=== PATIENT | female | born 1975 | race Caucasian/White ===

== ENCOUNTER 2019-10-03 15:11 | Emergency (ER) | payer OTHER ==
[2019-10-03 16:09] VITALS: BP 119/78
[2019-10-03 17:01] LABS: Hepatitis B Surface Ab Immune (Immune)
[2019-10-03 17:02] LABS: Hepatitis C Antibody Negative (Negative)
--- NOTE | 2019-10-04 05:42 | ED ---
- HPI Summary HPI Summary: This patient is a 44-year-old female presenting to the ED with fingerstick to the left ring finger. Pt was accidentally stuck with a needle that she had used to inject a pt with heparin. Source patient will be tested. Denies any pain. Was able to wash the wound out well. No evidence of fingerstick per patient. No blood loss. 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 - Source Information HIV: Unknown Hepatitis: Unknown - Risk Factors Needlestick Risk Factor: Low Risk: Short Duration - Other Discussed Post-Exposure prophylaxis (PEP) for HIV: Declined Discussed PEP for Hepatitis-B: Declined Serologic Testing (HIV/HBV) Declined by Patient: No (Must be retained for 90 days, if drawn) PMH/Surg Hx/FS Hx/Imm Hx Previously Healthy: Yes Endocrine/Hematology History: Denies: Hx Anticoagulant Therapy, Hx Diabetes, Hx Thyroid Disease Cardiovascular History: Denies: Hx Congestive Heart Failure, Hx Deep Vein Thrombosis, Hx Hypertension , Hx Myocardial Infarction, Hx Pacemaker/ICD Respiratory History: 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 Denies: Hx Chronic Obstructive Pulmonary Disease (COPD), Hx Lung Cancer GI History: Denies: Hx Gall Bladder Disease, Hx Gastrointestinal Bleed, Hx Ulcer, Hx Urosepsis History: Denies: Hx Kidney Stones, Hx Renal Disease Neurological History: Denies: Hx Dementia, Hx Migraine, Hx Seizures, Hx Transient Ischemic Attacks (TIA) Psychiatric History: Denies: Hx Anxiety, Hx Depression, Hx Schizophrenia, Hx Bipolar Disorder - Immunization History Hx Pertussis Vaccination: No Immunizations Up to Date: Yes Infectious Disease History: No Infectious Disease History: Denies: Hx Hepatitis, Hx Human Immunodeficiency Virus (HIV), History Other Infectious Disease, Traveled Outside the [place] in Last 30 Days - Social History Occupation: Employed Full-time Lives: With Family Alcohol Use: Occasionally Hx Substance Use: No Substance Use Type: Reports: None Hx Tobacco Use: No Smoking Status (MU): Never Smoked Tobacco Review of Systems Negative: Fever, Chills, Fatigue, Skin Diaphoresis Negative: Palpitations, Chest Pain Negative: Shortness Of Breath Negative: Myalgia Negative: Rash, Bruising Neurological: Negative All Other Systems Reviewed And Are Negative: Yes Physical Exam Triage Information Reviewed: Yes Vital Signs On Initial Exam: Initial Vitals Temp Pulse Resp BP Pulse Ox 98.7 F 68 15 114/79 97 10/03/19 15:15 10/03/19 15:15 10/03/19 15:15 10/03/19 15:15 10/03/19 15:15 Vital Signs Reviewed: Yes Appearance: Positive: Well-Appearing Skin: Positive: Skin Color Reflects Adequate Perfusion Head/Face: Positive: Normal Head/Face Inspection Eyes: Positive: EOMI, DENAE, Conjunctiva Clear Neck: Positive: Supple Respiratory/Lung Sounds: Positive: Breath Sounds Present Cardiovascular: Positive: RRR Musculoskeletal: Positive: Strength/ROM Intact Neurological: Positive: Alert, Oriented to Person Place, Time, Speech Normal Psychiatric: Positive: Affect/Mood Appropriate Procedures - Sedation Patient Received Moderate/Deep Sedation with Procedure: No Diagnostics - Vital Signs Vital Signs Temp Pulse Resp BP Pulse Ox 10/03/19 16:08 98.5 F 70 16 119/78 99 10/03/19 15:15 98.7 F 68 15 114/79 97 - Laboratory Lab Results: Lab Results 10/03/19 Range/Units 15:44 Hepatitis B Antibody Immune (Immune) Hep Bs Antigen Pending Hepatitis C Antibody Negative (Negative) Hepatitis C Ab Index 0.01 s/c Lab Statement: Any lab studies that have been ordered have been reviewed, and results considered in the medical decision making process. Needlestick Course/Dx - Course Course Of Treatment: Patient was educated regarding PEP. Patient will not be treated for PEP at this time. Source patient will be tested and we will await results. HEP panel and HIV obtained. - Diagnoses Provider Diagnoses: Needlestick injury accident Discharge ED - Sign-Out/Discharge Documenting (check all that apply): Patient Departure - Discharge Plan Condition: Stable Disposition: HOME Referrals: Temi Santacruz MD [Primary Care Provider] - Additional Instructions: As discussed, at this time, I do not recommend prophylactic treatment - Billing Disposition and Condition Condition: STABLE Disposition: Home
--- NOTE | 2019-10-04 05:48 | ED ---
Imaging and Labs Follow Up Follow Up Type: Labs/Cultures Labs/Culture Result: Called with source patient information - HIV negative Patient Communication/Plan: HIV negative of source patient Patient Communication/Plan: Called patient - no answer - letter sent explaining source patient tested and negative for HIV Provider Diagnoses: Needlestick injury accident
[2019-10-04 10:40] LABS: HIV 4th Generation Nonreactive (Nonreactive)
[2019-10-04 16:46] LABS: Hepatitis B Surface Antigen Nonreactive (Nonreactive)
== END 2019-10-03 16:08 | disposition home or self-care (01) ==
LOC: ED 15:11
DX: S61.235A Puncture wound without foreign body of left ring finger without damage to nail, initial encounter (principal); W46.1XXA Contact with contaminated hypodermic needle, initial encounter; Y92.239 Unspecified place in hospital as the place of occurrence of the external cause
CPT/HCPCS: 36415; 86706; 86803; 87340; 87389; 87536; 99282

== ENCOUNTER 2019-12-05 06:48 | Emergency (ER) | payer BC ==
[2019-12-05 07:28] LABS: Urine Appearance Clear; Urine Bilirubin Negative (Negative); Urine Blood 2+ (Negative); Urine Color Colorless; Urine Glucose Negative (Negative); Urine Ketones Negative (Negative); Urine Nitrite Negative (Negative); Urine Protein Negative (Negative); Urine Specific Gravity 1.003 (1.010-1.030); Urine Urobilinogen Negative (Negative)
[2019-12-05 07:32] LABS: Urine Bacteria 1+ (Absent); Urine Red Blood Cell Trace(0-2/hpf) (Absent); Urine Squamous Epithelial Cell Present (Absent); Urine White Blood Cell Trace(0-5/hpf) (Absent)
[2019-12-05 08:01] LABS: ABS Basophils 0.1 10^3/ul (0-0.2); ABS Eosinophils 0.1 10^3/ul (0-0.6); ABS Lymphocytes 1.8 10^3/ul (1.0-4.8); ABS Monocytes 0.5 10^3/ul (0-0.8); ABS Neutrophils 3.3 10^3/ul (1.5-7.7); Hematocrit 38 % (35-47); Hemoglobin 13.4 g/dL (12.0-16.0); Lymphocyte % 31.8 %; Mean Corpuscular HGB Conc 35 g/dL (31-36); Mean Corpuscular Hemoglobin 32 pg (27-31); Mean Corpuscular Volume 90 fL (80-97); Mean Platelet Volume 8.5 fL (7.4-10.4); Platelet Count 253 10^3/uL (150-450); Red Cell Distribution Width 13 % (10-15); White Blood Count 5.8 10^3/uL (3.5-10.8)
[2019-12-05 08:02] LABS: Albumin 4.1 g/dL (3.2-5.2); Albumin/Globulin Ratio 1.6 (1-3); BUN/Creatinine Ratio 22.7 (8-20); Calcium 8.4 mg/dL (8.6-10.3); EGFR Non-African American 84.3 (>60); Globulin 2.5 g/dL (2-4); Potassium 3.7 mmol/L (3.5-5.0); Total Bilirubin 0.6 mg/dL (0.2-1.0); Total Protein 6.6 g/dL (6.4-8.9)
[2019-12-05] MEDS ORDERED: Cephalexin CAP* 500 MG PO ONE (08:17)
--- NOTE | 2019-12-05 08:26 | ED ---
GI/ HPI - HPI Summary HPI Summary: This pt is a 44 Y/O F presenting to [facility] with a CC of R flank pain that is currently rated a 4/10 in severity. She states that she has had the pain for around a week which has been increasing over the last couple days. She states that she has been having an increase in her frequency and urgency. She states that she has not had any dysuria, fevers, chills, N/V, and headaches. She states that she isnt having any relief from her symptoms and states that urinating aggravates her pain. She states that the pain reminds her of a UTI. She has no pertinent PMHx but states a FHx of kidney stones. - History of Current Complaint Chief Complaint: EDFlankPain Time Seen by Provider: 12/05/19 07:15 Stated Complaint: UTI PER PT Hx Obtained From: Patient Hx Last Menstrual Period: 2 weeks ago. Onset/Duration: Started Weeks Ago, Still Present Timing: Constant Severity: Moderate Current Severity: Moderate Pain Intensity: 4 Location of Pain: Flank - R Associated Signs and Symptoms: Positive: Dysuria, Flank Pain - R, UTI Symptoms. Negative: Nausea, Vomiting, Fever, Hematuria, Chills Aggravating Factor(s): Urination Alleviating Factor(s): Nothing - Allergy/Home Medications Allergies/Adverse Reactions: Allergies Allergy/AdvReac Type Severity Reaction Status Date / Time cyproheptadine Allergy Unknown Verified 12/05/19 06:51 Reaction Details PMH/Surg Hx/FS Hx/Imm Hx Previously Healthy: Yes Endocrine/Hematology History: Denies: Hx Anticoagulant Therapy, Hx Diabetes, Hx Thyroid Disease Cardiovascular History: Denies: Hx Congestive Heart Failure, Hx Deep Vein Thrombosis, Hx Hypertension , Hx Myocardial Infarction, Hx Pacemaker/ICD Respiratory History: 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 Denies: Hx Chronic Obstructive Pulmonary Disease (COPD), Hx Lung Cancer GI History: Denies: Hx Gall Bladder Disease, Hx Gastrointestinal Bleed, Hx Ulcer, Hx Urosepsis History: Denies: Hx Kidney Stones, Hx Renal Disease Neurological History: Denies: Hx Dementia, Hx Migraine, Hx Seizures, Hx Transient Ischemic Attacks (TIA) Psychiatric History: Denies: Hx Anxiety, Hx Depression, Hx Schizophrenia, Hx Bipolar Disorder - Cancer History Hx Chemotherapy: No Hx Radiation Therapy: No - Surgical History Surgical History: None - Immunization History Date of Influenza Vaccine: 2019 Immunizations Up to Date: Yes Infectious Disease History: No Infectious Disease History: Denies: Hx Hepatitis, Hx Human Immunodeficiency Virus (HIV), History Other Infectious Disease, Traveled Outside the [place] in Last 30 Days - Family History Known Family History: Positive: Renal Disease - kidney stones - Social History Occupation: Employed Full-time Lives: With Family Alcohol Use: Occasionally Hx Substance Use: No Substance Use Type: Reports: None Hx Tobacco Use: No Smoking Status (MU): Never Smoked Tobacco Review of Systems Negative: Fever, Chills Negative: Vomiting, Nausea Positive: burning, frequency - increase, flank pain - R , urgency - increase Negative: Headache All Other Systems Reviewed And Are Negative: Yes Physical Exam - Summary Physical Exam Summary: Constitutional: Well-developed, Well-nourished, Alert. (-) Distressed Skin: Warm, Dry HENT: Normocephalic; Atraumatic Eyes: Conjunctiva normal Neck: Musculoskeletal ROM normal neck. (-) JVD, (-) Stridor, (-) Nuchal rigidity Cardio: Rhythm regular, rate normal, Heart sounds normal; Intact distal pulses; Radial pulses are 2+ and symmetric. (-) Murmur Pulmonary/Chest wall: Effort normal. (-) Respiratory distress, (-) Wheezes, (-) Rales Abd: Soft, Flank tenderness, (-) Distension, (-) Guarding, (-) Rebound Musculoskeletal: (-) Edema Lymph: (-) Cervical adenopathy Neuro: Alert, Oriented x3 Psych: Mood and affect Normal Triage Information Reviewed: Yes Vital Signs On Initial Exam: Initial Vitals Temp Pulse Resp BP Pulse Ox 98.8 F 71 18 124/81 100 12/05/19 06:49 12/05/19 06:49 12/05/19 06:49 12/05/19 06:49 12/05/19 06:49 Vital Signs Reviewed: Yes Procedures - Sedation Patient Received Moderate/Deep Sedation with Procedure: No Diagnostics - Vital Signs Vital Signs Temp Pulse Resp BP Pulse Ox 12/05/19 06:49 98.8 F 71 18 124/81 100 - Laboratory Lab Results: Lab Results 12/05/19 12/05/19 12/05/19 Range/Units 07:05 07:37 07:37 WBC 5.8 (3.5-10.8) 10^3/uL RBC 4.20 (3.70-4.87) 10^6 /uL Hgb 13.4 (12.0-16.0) g/dL Hct 38 (35-47) % MCV 90 (80-97) fL MCH 32 H (27-31) pg MCHC 35 (31-36) g/dL RDW 13 (10-15) % Plt Count 253 (150-450) 10^3/uL MPV 8.5 (7.4-10.4) fL Neut % (Auto) 57.4 % Lymph % (Auto) 31.8 % [place] % (Auto) 7.9 % Eos % (Auto) 2.0 % Baso % (Auto) 0.9 % Absolute Neuts (auto) 3.3 (1.5-7.7) 10^3/ul Absolute Lymphs (auto) 1.8 (1.0-4.8) 10^3/ul Absolute Monos (auto) 0.5 (0-0.8) 10^3/ul Absolute Eos (auto) 0.1 (0-0.6) 10^3/ul Absolute Basos (auto) 0.1 (0-0.2) 10^3/ul Absolute Nucleated RBC 0.0 10^3/ul Nucleated RBC % 0.0 Sodium 133 L (135-145) mmol/L Potassium 3.7 (3.5-5.0) mmol/L Chloride 102 (101-111) mmol/L Carbon Dioxide 22 (22-32) mmol/L Anion Gap 9 (2-11) mmol/L BUN 17 (6-24) mg/dL Creatinine 0.75 (0.51-0.95) mg/dL Est GFR ( Amer) 102.0 (>60) Est GFR (Non-Af Amer) 84.3 (>60) BUN/Creatinine Ratio 22.7 H (8-20) Glucose 95 (70-100) mg/dL Calcium 8.4 L (8.6-10.3) mg/dL Total Bilirubin 0.60 (0.2-1.0) mg/dL AST 23 (13-39) U/L ALT 11 (7-52) U/L Alkaline Phosphatase 35 (34-104) U/L Total Protein 6.6 (6.4-8.9) g/dL Albumin 4.1 (3.2-5.2) g/dL Globulin 2.5 (2-4) g/dL Albumin/Globulin Ratio 1.6 (1-3) Urine Color Colorless Urine Appearance Clear Urine pH 5.0 (5-9) Ur Specific [place] 1.003 L (1.010-1.030) Urine Protein Negative (Negative) Urine Ketones Negative (Negative) Urine Blood 2+ A (Negative) Urine Nitrate Negative (Negative) Urine Bilirubin Negative (Negative) Urine Urobilinogen Negative (Negative) Ur Leukocyte Esterase Negative (Negative) Urine WBC (Auto) Trace(0-5/hpf) (Absent) Urine RBC (Auto) Trace(0-2/hpf) (Absent) Ur Squamous Epith Cells Present A (Absent) Urine Bacteria 1+ A (Absent) Urine Glucose Negative (Negative) Result Diagrams: 12/05/19 07:37 12/05/19 07:37 Lab Statement: Any lab studies that have been ordered have been reviewed, and results considered in the medical decision making process. - CT CT A/P CT Interpretation Completed By: Radiologist Summary of CT Findings: 1. 2 MM NONOBSTRUCTING RIGHT RENAL CALCULUS. 2. MALROTATION OF THE RIGHT KIDNEY. 3. ENLARGED UTERUS SUGGESTIVE OF A FIBROID UTERUS. THIS CAN BE FURTHER EVALUATED WITH A PELVIC ULTRASOUND. THIS CAUSES COMPRESSION OF THE BLADDER. ED physician has reviewed this report. GIGU Course/Dx - Course Course Of Treatment: 44 y/o F p/w R flank pain. - VSS. PE w R flank tenderness. - no fevers, UA with trace LE but given that patient symptomatic, will treat w keflex. - CT shows 2 mm non obstructing stone. Malrotated R kidney. - will treat with keflex QID 7 days, urology follow up. Return for worsening. Given diflucan at patient request. - Diagnoses Provider Diagnoses: Renal calculi, UTI (urinary tract infection) Discharge ED - Sign-Out/Discharge Documenting (check all that apply): Patient Departure - discharge - Discharge Plan Condition: Stable Disposition: HOME Prescriptions: Cephalexin CAP* [Keflex CAP*] 500 mg PO QID 7 Days #28 cap Fluconazole 150 MG TAB* [Diflucan 150 MG TAB*] 150 mg PO ONCE 1 Days #1 tablet Patient Education Materials: Kidney Stones (ED) Referrals: Temi Santacruz MD [Primary Care Provider] - 2 Days Cruzito West MD [Medical Doctor] - 2 Days Additional Instructions: You were seen in the emergency department for flank pain. CT showed a small stone on the right side. This should pass on its own. Please take Keflex for 1 week. Please follow up with urology if you have persistent pain. Please follow up with your primary care doctor in next 2-3 days and return to emergency department for worsening pain, fevers, or concerning symptoms. It was a pleasure taking care of you today. - Billing Disposition and Condition Condition: STABLE Disposition: Home - Attestation Statements Document Initiated by Aliya: Yes Documenting Scribe: Taye Frausto Provider For Whom Aliya is Documenting (Include Credential): Elza Tran MD Scribe Attestation: Taye Wright, scribed for Elza Tran MD on 12/05/19 at 1015. Scribe Documentation Reviewed: Yes Provider Attestation: The documentation as recorded by the Taye mike accurately reflects the service I personally performed and the decisions made by , Elza Tran MD Status of Scribe Document: Viewed
[2019-12-05 09:56] VITALS: BP 120/77
== END 2019-12-05 09:56 | disposition home or self-care (01) ==
LOC: ED 06:48
DX: N20.0 Calculus of kidney (principal); Q63.2 Ectopic kidney; N85.2 Hypertrophy of uterus; N39.0 Urinary tract infection, site not specified; Z88.8 Allergy status to other drugs, medicaments and biological substances
CPT/HCPCS: 36415; 74176; 80053; 81003; 81015; 85025; 87086; 99282; A9270-GY

== ENCOUNTER 2020-04-04 10:14 | Observation (INO) ==
[2020-04-04] MEDS ORDERED: Clindamycin 900 MG/D5W BAG 900 MG/50 ML BAG IVPB ONE (11:00)
[2020-04-04 11:40] LABS: ABS Eosinophils 0.1 10^3/ul (0-0.6); ABS Lymphocytes 0.9 10^3/ul (1.0-4.8); ABS Monocytes 0.3 10^3/ul (0-0.8); Eosinophil % 1.6 %; Hematocrit 40 % (35-47); Lymphocyte % 26.7 %; Mean Corpuscular HGB Conc 35 g/dL (31-36); Mean Corpuscular Hemoglobin 32 pg (27-31); Mean Corpuscular Volume 90 fL (80-97); Mean Platelet Volume 8.8 fL (7.4-10.4); Platelet Count 238 10^3/uL (150-450); Red Blood Count 4.42 10^6 /uL (3.70-4.87); Red Cell Distribution Width 13 % (10-15); White Blood Count 3.4 10^3/uL (3.5-10.8)
[2020-04-04 11:49] LABS: Activated Partial Thrombo Time 28.8 seconds (26.0-38.0); INR 1.04 (0.82-1.09)
[2020-04-04] MEDS ORDERED: oxyCODONE SR 10 mg TAB (*) ONE (11:53)
[2020-04-04] MEDS ORDERED: Ondansetron 4 mg VIAL 2 MG/ML 2 ml VIAL ONE (11:53)
[2020-04-04 11:58] LABS: BUN/Creatinine Ratio 28.8 (8-20); Calcium 9.3 mg/dL (8.6-10.3); EGFR African American 105.3 (>60)
[2020-04-04] MEDS ORDERED: Lidocaine 1% VIAL 10 MG/ML VIAL ONE (12:02)
[2020-04-04] MEDS ORDERED: Heparin 2 UNITS/ML 1000 mls 2,000 ML IV ONE (12:02)
[2020-04-04] MEDS ORDERED: Iohexol 350 (CONTRAST) 200 ML MDV IV ONE (12:02)
[2020-04-04] MEDS ORDERED: Midazolam 5 mg/5 ml VIAL 1 mg/ml 5 ml VIAL (5 mg) ONE (12:38)
[2020-04-04] MEDS ORDERED: fentaNYL 250 mcg/5 ml 50 MCG/ML 5 ml VIAL (250 MCG) ONE (12:38)
[2020-04-04] MEDS ORDERED: nitroGLYCERIN DRIP 25,000 MCG/250 ML BTL ONE (12:50)
[2020-04-04 12:54] LABS: HCG Pregnancy 0.93 mIU/mL
[2020-04-04] MEDS ORDERED: Lorazepam PYXIS KEY ONE (14:14)
[2020-04-04] MEDS ORDERED: HYDROmorphone 1 MG/1 ML SYRINGE ONE ×2 (14:14→15:02)
[2020-04-04] MEDS ORDERED: LORazepam 2 mg VIAL 1 ml ONE (14:15)
[2020-04-04] MEDS ORDERED: Prochlorperazine 5 mg/ml 2 ml VIAL (10 mg) ONE (14:17)
[2020-04-04] MEDS ORDERED: Naloxone 0.4 mg VIAL 0.4 mg/ml 1 ml VIAL IV PUSH PRN (14:40)
[2020-04-04] MEDS ORDERED: HYDROmorphone 0.5 MG/0.5 ML SYRINGE IV SLOW PU PRN (14:58)
[2020-04-04] MEDS ORDERED: HYDROmorphone PCA 20 MG/20 ML PCA.SYRING PCA SCH (15:00)
[2020-04-04] MEDS ORDERED: HYDROmorphone 1 MG/1 ML SYRINGE IV SLOW PU PRN (15:50)
[2020-04-04] MEDS: Ondansetron 4 mg VIAL 2 MG/ML 2 ml VIAL IV SCH (19:12)
[2020-04-04] MEDS: NS 0.9% 1000 ml BAG 1,000 ML IV SCH ×2 (19:23→21:10)
[2020-04-05] MEDS ORDERED: Prochlorperazine 5 mg/ml 2 ml VIAL (10 mg) IV PRN (00:30)
[2020-04-05] MEDS: Ondansetron 4 mg VIAL 2 MG/ML 2 ml VIAL IV SCH ×2 (01:08→07:24)
[2020-04-05] MEDS: NS 0.9% 1000 ml BAG 1,000 ML IV SCH (07:23)
[2020-04-05] MEDS ORDERED: HYDROcodone/ACETAMIN 5/325 mg TAB PO PRN (08:29)
[2020-04-05] MEDS ORDERED: CMCS: Ketorolac 10 mg TAB (NF) PO SCH (09:00)
[2020-04-05 11:40] VITALS: BP 128/77
== END 2020-04-05 12:28 | disposition home or self-care (01) ==
LOC: CHICATH 10:14 → SSU 10:14
PROVIDERS: ADMIT Internal Medicine; ATTEND Internal Medicine